=== PATIENT | female | born 1995 | race Caucasian/White ===

== ENCOUNTER 2023-05-27 | Outpatient (REF) | payer MEDICAID, SELFPAY | END 2023-05-27 00:01 | disposition home or self-care (01) | LOC: HO.HHCLNP | PROVIDERS: Visit Provider Advanced Practice Midwife | DX: Z12.4 Encounter for screening for malignant neoplasm of cervix (principal) | CPT/HCPCS: 88142 ==

== ENCOUNTER 2024-01-06 08:30 | Outpatient (REF) | payer OTHER, SELFPAY ==
--- NOTE | ~2024-01-06 | XR_ITS ---
EXAMINATION: XR KNEE, RIGHT CLINICAL INFORMATION: Atraumatic right knee pain COMPARISON: None available. TECHNIQUE: 3 standing views of the right knee. FINDINGS: No fracture or joint effusion. Alignment is anatomic. Joint spaces are maintained. No abnormal soft tissue calcification. XR/XR knee RT 3V IMPRESSION: No bony abnormality.
== END 2024-01-06 08:31 | disposition home or self-care (01) ==
LOC: HO.HHCX 08:30
PROVIDERS: Visit Provider Nurse Practitioner Primary Care
DX: M25.561 Pain in right knee (principal)
CPT/HCPCS: 73562

== ENCOUNTER 2024-05-26 14:49 | Outpatient (AMB) | payer OTHER, SELFPAY ==
--- NOTE | 2024-05-26 14:56 | A.OFFVIS_ITS ---
Vital Signs 3 05/26/24 15:08 Height 5 ft 5 in Weight 282 lb 8 oz BMI 47.0 BP 131/62 Blood Pressure Location Lt brachial Position Sitting Pulse 101 H Intake Visit Reasons: Multiple masses posterior neck Intake Note: Patient is seen in office for evaluation of multiple masses. Pt c/o:onset years, comes and goes, worse one in the posterior neck and b/w legs and under arms, admits to discharge, the one of the leg had gotten infected/cellulitis, have not had any removed in the past PCP:04/30/24 [employer] Required: No Accompanied by: Self / Same As Patient Allergies No Known Allergies Allergy (Verified 05/26/24 15:06) HPI Comments Details: 29-year-old female patient presenting for evaluation of several cutaneous cysts which occasionally become symptomatic. The worst is located in her posterior neck which became quite swollen and painful during the summertime. This subsequently drained spontaneously and is now settled. She does report occasional episodes of increased swelling of the cyst the most recent a proximally 1 month ago. She denies any previous surgical procedures for the cyst. She also has similar type lesions located below the axilla and in the groins. Currently they are all asymptomatic with no pain or discharge. [facility] Medical History Hidradenitis Surgical History Hx of wisdom tooth extraction Social History Alcohol intake: current Alcohol intake frequency: holidays/special occasions only Patient Tobacco Use Status: Never used Tobacco Review of Systems Const All systems reviewed & are unremarkable except as noted in HPI and below Denies chills, Denies fever(s), Denies headache(s), Denies poor appetite and Denies weakness ENT Denies headache(s) Card Denies chest pain, Denies irregular heart rhythm, Denies palpitations and Denies dyspnea Resp Denies cough, Denies excessive phlegm production and Denies dyspnea GI Denies abdominal pain, Denies bloating, Denies change in bowel habits, Denies constipation, Denies heartburn, Denies diarrhea, Denies nausea and Denies vomiting Denies urinary frequency Musc Denies back pain, Denies muscle weakness and Denies numbness Skin/Breast Denies changing lesions and Denies unusual bruising Neuro Denies headache(s), Denies numbness, Denies paresthesias and Denies weakness Psych Denies anxiety and Denies depression Endo Denies palpitations Ishan/Lymph Denies lymphadenopathy Physical Exam Vital Signs: Last Vital Signs Pulse 101 H 05/26/24 15:08 BP 131/62 05/26/24 15:08 BMI result Body Mass Index 47.0 Const General: cooperative and no acute distress Nutritional Appearance: well nourished Orientation/consciousness: patient oriented x3 Limitations: no limitations HEENT Head: Yes normocephalic and Yes atraumatic Ears: hearing grossly normal bilaterally Neck Neck images: 2 1. Small residual epidermal inclusion cyst with the overlying scar consistent with a prior infection. No evidence of ongoing infection at this time. Chest Other: No active hidradenitis at this time. Several scars are noted especially in the right axilla consistent with prior hidradenitis infection. Resp Effort & Inspection: normal respiratory effort, no audible wheezes, no cough and no respiratory distress Cardio Jugular venous distension: no JVD GI Inspection: Yes normal to inspection Skin Other: Warm, dry, no rash Neuro General: patient oriented x3 Extrem General: Yes no clubbing, cyanosis or edema Assessment & Plan Assessment & Plan (1) Hidradenitis: Code(s): L73.2 - Hidradenitis suppurativa Category: Medical Plan 29-year-old female patient presenting with a painful cyst in the posterior neck. The cyst is currently asymptomatic but occasionally will swell and become infected. We discussed excision of the cyst as a minor surgery. I also recommended a trial of Hibiclens several times weekly to decrease the bacterial counts on the skin. This may help to reduce the number of recurrences of the cutaneous infections. She wishes to hold on any surgical procedures at this time and will try the Hibiclens 1st. She will call if she has any further problems regarding the cysts. Medications: New 2 chlorhexidine gluconate 4% (Hibiclens) 1 appl topically QOD, lather for 1 minute before rinsing off.; 473 mL 1RF 1 dose L73.2 - Hidradenitis suppurativa Coding Level of Care Code New Pt Level 4 (91678) Diagnoses Hidradenitis L73.2
[2024-05-26 15:08] VITALS: BP 131/62; PULSE 101; BMI 47.0
== END 2024-05-26 15:37 | disposition home or self-care (01) ==
PROVIDERS: PCP Nurse Practitioner Primary Care; Visit Provider Surgery
DX: L73.2 Hidradenitis suppurativa (principal)
CPT/HCPCS: 99204

== ENCOUNTER → 2024-05-26 14:49 | Outpatient (BNVA) | payer MEDICAID, SELFPAY | PROVIDERS: PCP Nurse Practitioner Primary Care; Visit Provider Surgery | DX: L73.2 Hidradenitis suppurativa (principal); L72.0 Epidermal cyst | CPT/HCPCS: 99202 ==